=== PATIENT | male | born 1965 | race Caucasian/White ===

== ENCOUNTER 2017-08-12 15:32 | Inpatient (IN) | payer BC ==
[~2017-08-12 15:32] MED LIST: MIDAZOLAM 1 MG/ML 2 ML INJ
[2017-08-12] MEDS: MIDAZOLAM 1 MG/ML 5 ML INJ IV (16:06)
[2017-08-12] MEDS: MIDAZOLAM (DRIP) 50 mg/50 mL 50 ML IV (16:09)
[2017-08-12 16:20] LABS: AADO2 Arterial 572.8 mmHg (7.0-24.0); Allen Test ACCEPTAB; Arterial Base Excess -6.6 mmol/L (-3.0-3); Arterial Blood Gas Oxygen Sat 95.9 mmHG (95.0-98.0); Arterial Fraction of Oxyhgb 94.7 % (93.0-99.0); Arterial HCO3 20.7 mmol/L (22.0-26.0); Arterial MetHb 0.3 % (0.0-1.5); Arterial Total Hemglobin 16.6 g/dl (12.0-18.0); Arterial pCO2 47.6 mmhg (35-45); Blood Gas Low PEEP Setting 0 cmH2O; MODE VENT - AC; Site Right Radial
[2017-08-12 16:24] LABS: ADD MAN DIFF? NO
[2017-08-12 16:26] LABS: BASOPHIL # 0.1 10^3/ul (0.0-0.1); BASOPHILS % 0.6 % (0.0-2.0); EOSINOPHILS # 0.2 10^3/ul (0.0-0.5); EOSINOPHILS % 1.2 % (0.0-7.0); LYMPHOCYTES # 2.3 10^3/ul (0.8-2.9); MEAN CORPUSCULAR HGB CONC 35.6 g/dl (32.0-37.0); MEAN CORPUSCULAR VOLUME 84.3 fl (82.0-101.0); MEAN PLATELET VOLUME 10.3 fl (7.4-10.4); MONOCYTE # 0.5 10^3/ul (0.3-0.9); NEUTROPHIL # 9.7 10^3/ul (1.6-7.5); NEUTROPHILS % 75.4 % (39.0-77.0); PLATELET COUNT 176 10^3/UL (140-415); RED BLOOD COUNT 5.34 10^6/ul (4.70-6.10); RED CELL DISTRIBUTION WIDTH 12.4 % (11.5-14.5)
[2017-08-12 16:26] LABS: WHITE BLOOD COUNT 12.9 10^3/ul (4.8-10.8)
[2017-08-12] MEDS: HYDROmorphONE 1 MG/ML SYG IV (16:27)
[2017-08-12] MEDS: CEFEPIME 2GM/50 ML (PMX) 50 ML IVPB ×2 (16:27→22:19)
[2017-08-12] MEDS: SOD CHLORIDE 0.9% 1,000 ML IV ×3 (16:27→17:21)
[2017-08-12 16:36] LABS: INR 1.04; PARTIAL THROMBOPLASTIN TIME 25.8 Sec (25.0-35.0); PROTIME 13.7 Sec (11.9-14.9); PT RATIO 1.1
[2017-08-12 16:40] LABS: ANION GAP 13 (8-16); BLOOD UREA NITROGEN 21 mg/dl (7-20); CALCIUM 8.4 mg/dl (8.4-10.2); CARBON DIOXIDE 24 mmol/L (21-31); CHLORIDE 108 mmol/L (97-110); CREATININE 0.95 mg/dl (0.61-1.24); GLUCOSE 118 mg/dl (70-220); POTASSIUM 3.7 mmol/L (3.5-5.1); SODIUM 141 mmol/L (135-144)
[2017-08-12 16:51] LABS: TROPONIN-I 0.053 ng/ml (0.00-0.12)
[2017-08-12 16:55] LABS: LACTIC ACID 1.8 mmol/L (0.5-2.0)
[2017-08-12] MEDS: PROPOFOL 100 ML IV (17:53)
[2017-08-12] MEDS ORDERED: NACL 0.9% 3 ML SYG IV (18:00)
[2017-08-12] MEDS ORDERED: morphine 2 MG INJ IV (18:00)
[2017-08-12 19:47] LABS: AADO2 Arterial 523.2 mmHg (7.0-24.0); Allen Test ACCEPTAB; Arterial Blood Gas Oxygen Sat 98.6 mmHG (95.0-98.0); Arterial COHb 0.3 % (0.0-3.0); Arterial Fraction of Oxyhgb 97.9 % (93.0-99.0); Arterial HCO3 19.9 mmol/L (22.0-26.0); Arterial MetHb 0.4 % (0.0-1.5); Arterial Total Hemglobin 16.4 g/dl (12.0-18.0); Arterial pCO2 40.5 mmhg (35-45); Blood Gas Low PEEP Setting 0 cmH2O; MODE VENT - AC; Site Right Radial
[2017-08-12] MEDS: DEXTROSE 5%-0.45% NACL 1,000 ML IV (21:10)
[2017-08-12] MEDS: VANCOMYCIN 1 GM (PMX) 250 ML IVPB (21:30)
[2017-08-12 22:09] LABS: CREATINE KINASE 137 IU/L (23-200)
[2017-08-12 22:16] LABS: LACTIC ACID 3.2 mmol/L (0.5-2.0)
[2017-08-12 22:22] LABS: CK INDEX 1.8
[2017-08-12 22:25] LABS: CK-MB 2.42 ng/ml (0.0-2.4); TROPONIN-I 0.267 ng/ml (0.00-0.12)
[2017-08-12] MEDS ORDERED: LORAZEPAM 2 MG INJ IV (22:40)
[2017-08-12] MEDS: FENTAnyl (DRIP) 1000 mcg/100mL 100 ML IV (22:56)
[2017-08-13 03:40] LABS: ADD MAN DIFF? NO
[2017-08-13 04:04] LABS: WHITE BLOOD COUNT 19.9 10^3/ul (4.8-10.8)
[2017-08-13 04:04] LABS: BASOPHILS % 0.2 % (0.0-2.0); EOSINOPHILS % 0.1 % (0.0-7.0); HEMATOCRIT 39.8 % (42.0-52.0); HEMOGLOBIN 14.2 g/dl (14.0-18.0); LYMPHOCYTES # 1.9 10^3/ul (0.8-2.9); LYMPHOCYTES % 9.7 % (15.0-51.0); MEAN CORPUSCULAR HEMOGLOBIN 30.3 pg (29.0-33.0); MEAN CORPUSCULAR HGB CONC 35.7 g/dl (32.0-37.0); MEAN CORPUSCULAR VOLUME 84.9 fl (82.0-101.0); MEAN PLATELET VOLUME 10.3 fl (7.4-10.4); MONOCYTE # 1.2 10^3/ul (0.3-0.9); MONOCYTES % 5.9 % (0.0-11.0); NEUTROPHIL # 16.7 10^3/ul (1.6-7.5); NEUTROPHILS % 83.7 % (39.0-77.0); PLATELET COUNT 188 10^3/UL (140-415); RED BLOOD COUNT 4.69 10^6/ul (4.70-6.10); RED CELL DISTRIBUTION WIDTH 12.4 % (11.5-14.5)
[2017-08-13] MEDS: PROPOFOL 100 ML IV ×2 (04:05→14:30)
[2017-08-13 04:07] LABS: CREATINE KINASE 169 IU/L (23-200)
[2017-08-13 04:09] LABS: ALANINE AMINOTRANSFERASE 36 IU/L (13-69); ALBUMIN 3.2 g/dl (3.3-4.9); ALBUMIN/GLOBULIN RATIO 1.39; ALKALINE PHOSPHATASE 46 IU/L (42-121); ANION GAP 15 (8-16); ASPARTATE AMINO TRANSFERASE 22 IU/L (15-46); BILIRUBIN,INDIRECT 0.5 mg/dl (0-1.1); BILIRUBIN,TOTAL 0.5 mg/dl (0.2-1.3); BLOOD UREA NITROGEN 21 mg/dl (7-20); CALCIUM 8.1 mg/dl (8.4-10.2); CARBON DIOXIDE 20 mmol/L (21-31); CHLORIDE 108 mmol/L (97-110); CREATININE 0.92 mg/dl (0.61-1.24); GLUCOSE 137 mg/dl (70-220); MAGNESIUM 1.7 mg/dl (1.7-2.5); PHOSPHORUS 3.8 mg/dl (2.5-4.9); POTASSIUM 4.5 mmol/L (3.5-5.1); SODIUM 138 mmol/L (135-144); TOTAL PROTEIN 5.5 g/dl (6.1-8.1)
[2017-08-13 04:17] LABS: CK INDEX 1.8; CK-MB 3.05 ng/ml (0.0-2.4)
[2017-08-13 05:05] LABS: THYROID STIMULATING HORMONE 0.225 MIU/L (0.465-4.680)
[2017-08-13] MEDS: CEFEPIME 2GM/50 ML (PMX) 50 ML IVPB (07:20)
[2017-08-13] MEDS: PANTOPRAZOLE 40 MG INJ IV (07:20)
[2017-08-13 09:07] LABS: AADO2 Arterial 225.3 mmHg (7.0-24.0); Allen Test ACCEPTAB; Arterial Base Excess -4.3 mmol/L (-3.0-3); Arterial Blood Gas Oxygen Sat 95.2 mmHG (95.0-98.0); Arterial COHb 0.1 % (0.0-3.0); Arterial Fraction of Oxyhgb 94.8 % (93.0-99.0); Arterial HCO3 21.6 mmol/L (22.0-26.0); Arterial MetHb 0.3 % (0.0-1.5); Arterial Total Hemglobin 15.3 g/dl (12.0-18.0); Arterial pCO2 42.4 mmhg (35-45); MODE VENT - AC; Site Right Radial
[2017-08-13] MEDS: ENOXAPARIN 40 MG/0.4 ML SYG SC (12:03)
[2017-08-13] MEDS: PIPER-TAZO 3.375 GM IV (PMX) 100 ML IVPB ×3 (12:05→23:19)
[2017-08-13] MEDS: DEXTROSE 5%-0.45% NACL 1,000 ML IV ×2 (13:38→15:00)
[2017-08-13] MEDS: ASPIRIN (EC) 81 MG TAB PO (17:19)
[2017-08-13] MEDS: METOPROLOL (XL) 25 MG TAB PO (17:19)
[2017-08-14 05:41] LABS: ADD MAN DIFF? NO
[2017-08-14 05:46] LABS: WHITE BLOOD COUNT 11.3 10^3/ul (4.8-10.8)
[2017-08-14 05:46] LABS: BASOPHIL # 0.1 10^3/ul (0.0-0.1); BASOPHILS % 0.7 % (0.0-2.0); EOSINOPHILS # 0.2 10^3/ul (0.0-0.5); EOSINOPHILS % 1.4 % (0.0-7.0); HEMATOCRIT 35.7 % (42.0-52.0); LYMPHOCYTES # 2.4 10^3/ul (0.8-2.9); LYMPHOCYTES % 21.2 % (15.0-51.0); MEAN CORPUSCULAR HEMOGLOBIN 31.1 pg (29.0-33.0); MEAN CORPUSCULAR HGB CONC 36.4 g/dl (32.0-37.0); MEAN CORPUSCULAR VOLUME 85.4 fl (82.0-101.0); MEAN PLATELET VOLUME 10.7 fl (7.4-10.4); MONOCYTE # 0.9 10^3/ul (0.3-0.9); MONOCYTES % 7.5 % (0.0-11.0); NEUTROPHIL # 7.8 10^3/ul (1.6-7.5); NEUTROPHILS % 68.8 % (39.0-77.0); PLATELET COUNT 156 10^3/UL (140-415); RED BLOOD COUNT 4.18 10^6/ul (4.70-6.10); RED CELL DISTRIBUTION WIDTH 12.9 % (11.5-14.5)
[2017-08-14] MEDS: DEXTROSE 5%-0.45% NACL 1,000 ML IV (05:47)
[2017-08-14] MEDS: PANTOPRAZOLE 40 MG INJ IV (06:12)
[2017-08-14] MEDS: PIPER-TAZO 3.375 GM IV (PMX) 100 ML IVPB ×4 (06:12→23:37)
[2017-08-14 06:21] LABS: ALANINE AMINOTRANSFERASE 34 IU/L (13-69); ALBUMIN 3.2 g/dl (3.3-4.9); ALKALINE PHOSPHATASE 51 IU/L (42-121); ANION GAP 12 (8-16); ASPARTATE AMINO TRANSFERASE 18 IU/L (15-46); BILIRUBIN,INDIRECT 0.8 mg/dl (0-1.1); BILIRUBIN,TOTAL 0.8 mg/dl (0.2-1.3); BLOOD UREA NITROGEN 15 mg/dl (7-20); CALCIUM 8.8 mg/dl (8.4-10.2); CARBON DIOXIDE 25 mmol/L (21-31); CHLORIDE 109 mmol/L (97-110); CREATININE 0.93 mg/dl (0.61-1.24); GLUCOSE 112 mg/dl (70-220); POTASSIUM 3.7 mmol/L (3.5-5.1); SODIUM 142 mmol/L (135-144); TOTAL PROTEIN 6.1 g/dl (6.1-8.1)
[2017-08-14 06:22] LABS: CHOL/HDL RATIO 4.3 RATIO; CHOLESTEROL 156 mg/dl (100-200); HDL CHOLESTEROL 36 mg/dl (28-71); LDL CHOLESTEROL,CALCULATED 81 mg/dl; MAGNESIUM 2.1 mg/dl (1.7-2.5); TRIGLYCERIDES 194 mg/dl (0-149)
[2017-08-14 06:22] LABS: PHOSPHORUS 2.6 mg/dl (2.5-4.9)
[2017-08-14 06:29] LABS: TROPONIN-I 0.054 ng/ml (0.00-0.12)
[2017-08-14] MEDS: ASPIRIN (EC) 81 MG TAB PO (08:02)
[2017-08-14] MEDS: ENOXAPARIN 40 MG/0.4 ML SYG SC (08:03)
[2017-08-14] MEDS: METOPROLOL (XL) 25 MG TAB PO ×2 (08:03→21:19)
[2017-08-14] MEDS: ACETAMINOPHEN 325 MG TAB PO (21:51)
[2017-08-15] MEDS: PIPER-TAZO 3.375 GM IV (PMX) 100 ML IVPB (05:32)
[2017-08-15] MEDS: PANTOPRAZOLE (EC) 40 MG TAB PO (05:32)
[2017-08-15] MEDS: HYDROCODONE/APAP (5/325) TAB PO ×2 (05:50→19:35)
[2017-08-15 06:17] LABS: ADD MAN DIFF? NO
[2017-08-15 06:28] LABS: WHITE BLOOD COUNT 9.8 10^3/ul (4.8-10.8)
[2017-08-15 06:28] LABS: BASOPHIL # 0.1 10^3/ul (0.0-0.1); BASOPHILS % 0.7 % (0.0-2.0); EOSINOPHILS # 0.3 10^3/ul (0.0-0.5); EOSINOPHILS % 2.9 % (0.0-7.0); HEMATOCRIT 35.2 % (42.0-52.0); HEMOGLOBIN 12.4 g/dl (14.0-18.0); LYMPHOCYTES # 2.9 10^3/ul (0.8-2.9); LYMPHOCYTES % 29.8 % (15.0-51.0); MEAN CORPUSCULAR HEMOGLOBIN 30.2 pg (29.0-33.0); MEAN CORPUSCULAR HGB CONC 35.2 g/dl (32.0-37.0); MEAN CORPUSCULAR VOLUME 85.6 fl (82.0-101.0); MEAN PLATELET VOLUME 10.5 fl (7.4-10.4); MONOCYTE # 0.8 10^3/ul (0.3-0.9); MONOCYTES % 7.7 % (0.0-11.0); NEUTROPHIL # 5.7 10^3/ul (1.6-7.5); NEUTROPHILS % 58.5 % (39.0-77.0); PLATELET COUNT 169 10^3/UL (140-415); RED BLOOD COUNT 4.11 10^6/ul (4.70-6.10); RED CELL DISTRIBUTION WIDTH 12.4 % (11.5-14.5)
[2017-08-15 06:56] LABS: TROPONIN-I 0.024 ng/ml (0.00-0.12)
[2017-08-15 07:06] LABS: ANION GAP 11 (8-16); BLOOD UREA NITROGEN 19 mg/dl (7-20); CARBON DIOXIDE 28 mmol/L (21-31); CHLORIDE 108 mmol/L (97-110); CREATININE 0.88 mg/dl (0.61-1.24); GLUCOSE 103 mg/dl (70-220); SODIUM 143 mmol/L (135-144)
[2017-08-15 07:43] LABS: CALCIUM 8.9 mg/dl (8.4-10.2)
[2017-08-15] MEDS: AMOXICILLIN/CLAV 875 MG TAB PO ×3 (09:00→20:31)
[2017-08-15] MEDS: LISINOPRIL 10 MG TAB PO (09:23)
[2017-08-15] MEDS: METOPROLOL (XL) 25 MG TAB PO ×2 (09:24→20:28)
[2017-08-15] MEDS: ASPIRIN (EC) 81 MG TAB PO (09:24)
[2017-08-15] MEDS: ENOXAPARIN 40 MG/0.4 ML SYG SC (09:24)
[2017-08-15] MEDS: L ACIDOPHIL/B LACTIS/B LONGUM CAPSULE PO ×2 (10:00→20:28)
[2017-08-16] MEDS: PANTOPRAZOLE (EC) 40 MG TAB PO (05:32)
[2017-08-16 06:32] LABS: ADD MAN DIFF? NO
[2017-08-16 06:42] LABS: WHITE BLOOD COUNT 8.7 10^3/ul (4.8-10.8)
[2017-08-16 06:42] LABS: BASOPHIL # 0.1 10^3/ul (0.0-0.1); BASOPHILS % 0.9 % (0.0-2.0); EOSINOPHILS # 0.3 10^3/ul (0.0-0.5); EOSINOPHILS % 3.9 % (0.0-7.0); HEMATOCRIT 37.1 % (42.0-52.0); HEMOGLOBIN 13.2 g/dl (14.0-18.0); LYMPHOCYTES # 2.8 10^3/ul (0.8-2.9); LYMPHOCYTES % 31.8 % (15.0-51.0); MEAN CORPUSCULAR HEMOGLOBIN 30.3 pg (29.0-33.0); MEAN CORPUSCULAR HGB CONC 35.6 g/dl (32.0-37.0); MEAN CORPUSCULAR VOLUME 85.1 fl (82.0-101.0); MEAN PLATELET VOLUME 10.1 fl (7.4-10.4); MONOCYTE # 0.6 10^3/ul (0.3-0.9); MONOCYTES % 7.3 % (0.0-11.0); NEUTROPHIL # 4.8 10^3/ul (1.6-7.5); NEUTROPHILS % 55.5 % (39.0-77.0); PLATELET COUNT 174 10^3/UL (140-415); RED BLOOD COUNT 4.36 10^6/ul (4.70-6.10); RED CELL DISTRIBUTION WIDTH 12.2 % (11.5-14.5)
[2017-08-16 07:14] LABS: ANION GAP 13 (8-16); BLOOD UREA NITROGEN 18 mg/dl (7-20); CALCIUM 9.2 mg/dl (8.4-10.2); CARBON DIOXIDE 26 mmol/L (21-31); CHLORIDE 107 mmol/L (97-110); CREATININE 0.93 mg/dl (0.61-1.24); GLUCOSE 102 mg/dl (70-220); MAGNESIUM 1.9 mg/dl (1.7-2.5); PHOSPHORUS 3.1 mg/dl (2.5-4.9); POTASSIUM 3.8 mmol/L (3.5-5.1); SODIUM 142 mmol/L (135-144)
[2017-08-16] MEDS: METOPROLOL (XL) 25 MG TAB PO ×2 (09:00→11:28)
[2017-08-16] MEDS: L ACIDOPHIL/B LACTIS/B LONGUM CAPSULE PO ×2 (09:00→11:27)
[2017-08-16] MEDS: ENOXAPARIN 40 MG/0.4 ML SYG SC ×2 (09:00→11:30)
[2017-08-16] MEDS: AMOXICILLIN/CLAV 875 MG TAB PO ×2 (09:00→11:27)
[2017-08-16] MEDS: LISINOPRIL 10 MG TAB PO ×2 (09:00→11:28)
[2017-08-16] MEDS: ASPIRIN (EC) 81 MG TAB PO ×2 (09:00→11:28)
[2017-08-16] MEDS: REGADENOSON 0.4 MG/5 ML SYG (09:32)
== END 2017-08-16 14:06 | disposition home or self-care (01) | DRG 208 ==
LOC: TEL 08-14 18:59 → E/R 15:32 → ICU 16:09
PROC: 5A1945Z Respiratory Ventilation, 24-96 Consecutive Hours (ICD-10-PCS; principal; 2017-08-12)
DX: J95.4 Chemical pneumonitis due to anesthesia (principal); I21.A1 Myocardial infarction type 2; J96.01 Acute respiratory failure with hypoxia; E87.4 Mixed disorder of acid-base balance; I95.2 Hypotension due to drugs; I10 Essential (primary) hypertension; R00.1 Bradycardia, unspecified; E78.5 Hyperlipidemia, unspecified; T41.45XA Adverse effect of unspecified anesthetic, initial encounter; Y92.530 Ambulatory surgery center as the place of occurrence of the external cause
CPT/HCPCS: 36415; 36600; 71045; 78452; 80048; 80053; 80061; 82550; 82553; 82803; 83605; 83735; 84100; 84443; 84484; 85025; 85610; 85730; 87040; 87070; 87081; 87400; 89220; 93005; 93017; 93306; 94002; 94003; 94770; 96374; 96375; 97162; 99291-25